=== PATIENT | female | born 1945 | race Caucasian/White ===

== ENCOUNTER → 2019-12-29 | Outpatient (CLI) | payer OTHER | END | disposition home or self-care (01) | LOC: MRI 07:13 | PROVIDERS: ATTEND Internal Medicine | DX: R41.1 Anterograde amnesia (principal) | CPT/HCPCS: 70551 ==

== ENCOUNTER 2021-06-15 09:10 | Outpatient (CLI) | payer OTHER | END 2021-06-15 09:45 | disposition home or self-care (01) | LOC: ASH CLINIC 09:10 | PROVIDERS: ATTEND Emergency Medicine | DX: U07.1 COVID-19 (principal); Z23 Encounter for immunization ==